=== PATIENT | female | born 1980 | race Caucasian/White ===

== ENCOUNTER 2018-03-25 15:39 | Emergency (ER) | payer OTHER ==
[~2018-03-25] VITALS: Ht 157.5 cm; Wt 109.0 kg
[~2018-03-25 15:39] MED LIST: NO HOME MEDS
[2018-03-25 15:52] VITALS: BP 149/96
== END 2018-03-25 16:15 | disposition home or self-care (01) ==
LOC: ER 15:40
DX: M25.521 Pain in right elbow (principal); M25.532 Pain in left wrist; Z90.49 Acquired absence of other specified parts of digestive tract; X50.0XXA Overexertion from strenuous movement or load, initial encounter; Y93.H3 Activity, building and construction; Y92.89 Other specified places as the place of occurrence of the external cause; Y99.8 Other external cause status
CPT/HCPCS: 99281

== ENCOUNTER 2024-09-11 16:12 | Emergency (ER) | payer MEDICAID ==
[~2024-09-11] VITALS: Ht 172.7 cm; Wt 119.6 kg
[2024-09-11 16:21] VITALS: TEMP 98.1
--- NOTE | 2024-09-11 16:37 | ELECTROCARDIOGRAPH REPORT ---
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 Jalen Kendall Measurements Intervals [place] Rate: 93 P: 37 MT: 128 QRS: 34 QRSD: 88 T: 36 QT: 380 QTc: 473 Interpretive Statements Sinus rhythm Electronically Signed On 09-11-2024 18:29:[address] Jalen Kendall Please click the below link to view image of tracing.
--- NOTE | 2024-09-11 16:39 | RADIOLOGY REPORT ---
CHEST RADIOGRAPH Indication: CP Technique: Single frontal view of the chest was obtained COMPARISON: None FINDINGS: Lines and Tubes: None Lungs: Clear Pleura: No effusion. No pneumothorax. Cardiomediastinal contours: Unremarkable Bones: Unremarkable IMPRESSION: No acute disease.
[2024-09-11 16:48] LABS: BASOPHILS # (AUTO) 0.1 X10'3 (0-0.2); BASOPHILS % (AUTO) 0.5 % (0-1); EOSINOPHILS # (AUTO) 0.5 X10'3 (0-0.9); EOSINOPHILS % (AUTO) 4.2 % (0-6); HEMATOCRIT 27.6 % (35.0-45.0); HEMOGLOBIN 8.3 g/dl (12.0-16.0); LYMPHOCYTES # (AUTO) 2.4 X10'3 (1.1-4.8); LYMPHOCYTES % (AUTO) 19.1 % (21-51); MEAN CORPUSCULAR HEMOGLOBIN 19.1 PG (27.0-31.0); MEAN CORPUSCULAR HGB CONC 30.2 g/dL (33.0-36.5); MEAN CORPUSCULAR VOLUME 63.1 FL (78-98); MEAN PLATELET VOLUME 6.8 FL (7.4-10.4); MONOCYTES # (AUTO) 0.8 X10'3 (0-0.9); MONOCYTES % (AUTO) 6.4 % (2-12); NEUTROPHILS # (AUTO) 8.7 X10'3 (1.8-7.7); NEUTROPHILS % (AUTO) 69.8 % (42-75); PLATELET COUNT 573 X10'3 (140-440); RED BLOOD COUNT 4.38 X10'6 (4.20-5.60); RED CELL DISTRIBUTION WIDTH 18.7 % (11.5-14.5); WHITE BLOOD COUNT 12.4 X10'3 (4.5-11.0)
[2024-09-11 17:08] LABS: ALANINE AMINOTRANSFERASE 17 U/L (12-78); ALBUMIN/GLOBULIN RATIO 0.7 (1.1-1.5); ALKALINE PHOSPHATASE 89 IU/L (46-116); ANION GAP 8 (8-16); ASPARTATE AMINO TRANSFERASE 11 U/L (10-37); BILIRUBIN,TOTAL 0.1 MG/DL (0.1-1.0); BLOOD UREA NITROGEN 17 MG/DL (7-18); BUN/CREATININE RATIO 28.3 (10.0-20.0); CALCIUM 8.5 MG/DL (8.5-10.1); CHLORIDE 105 MMOL/L (99-107); GLUCOSE 88 MG/DL (70-104); POTASSIUM 3.7 MMOL/L (3.5-5.1); SODIUM 139 MMOL/L (135-145); TOTAL CARBON DIOXIDE 26.5 MMOL/L (24-32); TOTAL PROTEIN 7.4 G/DL (6.4-8.2); eCRCL 118 ML/MIN; eGFR > 90 ML/MIN
[2024-09-11 17:14] LABS: PRO BRAIN NATRIURETIC PEPTIDE 47 PG/ML (0-125)
[2024-09-11 17:59] VITALS: BP 127/58; PULSE 79; O2SAT 100
--- NOTE | 2024-09-11 18:21 | Physician Documentation ---
History of Present Illness ~ Chief Complaint: Edema Stated Complaint: SWELLING ALL OVER BODY Time Seen by MD: 18:06 Primary Medical Doctor: DRAGAN Mode of Arrival: [facility] 44-year-old female patient came to the emergency room because of bilateral lower extremity swelling and occasional shortness a breath for two days. No chest pain. No surgery. 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 Medication Reconciliation Allergies: Coded Allergies: No Known Allergies (Unverified , 10/18/15) Miscellaneous Medications Home Med List (No Home Medications), (Reported) Past Medical History Past Medical History: Cholelithiasis Past Surgical History: cholecystectomy, orthopedic surgeries, tubal ligation Last Menstrual Period: Aug 31, 2024 Drug Use: none Lives In: Home Occupation: employed Review of Systems ROS As stated above in the HPI, otherwise all systems are reviewed and negative. Physical Exam Vital Signs: Temperature: 98.1, Source: Oral, Heart Rate: 79, Respiratory Rate: 19, BP: 127/58, Pulse Oximetry: 100, Weight: 119.600 Oxygen Flow Rate: 0 General Appearance Reviewed vital signs and they are well within normal range. Const: [ ] Head: Atraumatic Eyes: Normal Conjunctiva ENT: Normal External Ears, Nose and Mouth. [Moist mucous membranes] Neck: Full range of motion. No meningismus Resp: Clear to auscultation bilaterally. Normal work of breathing Cardio: Regular rate and rhythm, no murmurs. Skin well perfused, heart rate 84 beats per minute Abd: Soft, non-tender, non-distended. Normal bowel sounds. No rebound or guarding Skin: No petechiae or rashes. Warm and dry Back: No midline or flank tenderness Ext: No cyanosis, or edema Neuro: Awake and alert Psych: Normal Mood and Affect Progress Results/Orders Results/Orders Vital Signs 09/11/24 09/11/24 09/11/24 09/11/24 16:21 16:56 17:30 17:59 Temp 98.1 Pulse 95 90 79 Resp 16 21 16 B/P (MAP) 149/91 127/69 (88) 127/58 (81) Pulse Ox 99 97 100 100 O2 Delivery Room Air* O2 Flow Rate 0 0 0 0 FiO2 21 09/11/24 09/11/24 18:05 19:18 Resp 19 16 B/P (MAP) Laboratory Tests Test 09/11/24 16:28 5/4/25 18:23 09/11/24 18:24 09/11/24 19:25 White Blood Count 12.4 H Red Blood Count 4.38 Hemoglobin 8.3 L Hematocrit 27.6 L Mean Corpuscular Volume 63.1 L Mean Corpuscular Hemoglobin 19.1 L Mean Corpuscular Hemoglobin Concent 30.2 L Red Cell Distribution Width 18.7 H Platelet Count 573 H Mean Platelet Volume 6.8 L Neutrophils (%) (Auto) 69.8 Lymphocytes (%) (Auto) 19.1 L Monocytes (%) (Auto) 6.4 Eosinophils (%) (Auto) 4.2 Basophils (%) (Auto) 0.5 Neutrophils # (Auto) 8.7 H Lymphocytes # (Auto) 2.4 Monocytes # (Auto) 0.8 Eosinophils # (Auto) 0.5 Basophils # (Auto) 0.1 CBC Comment D-Dimer 0.53 H D-Dimer Comment Sodium Level 139 Potassium Level 3.7 Chloride Level 105 Carbon Dioxide Level 26.5 Anion Gap 8 Blood Urea Nitrogen 17 Creatinine 0.60 Estimated GFR/1.73 m2 > 90 BUN/Creatinine Ratio 28.3 H Glucose Level 88 Calcium Level 8.5 Ferritin 6 L Total Bilirubin 0.1 Aspartate Amino Transf (AST/SGOT) 11 Alanine Aminotransferase (ALT/SGPT) 17 Alkaline Phosphatase 89 Troponin I High Sensitivity 5 7 6 Pro-B-Type Natriuretic Peptide 47 Total Protein 7.4 Albumin 3.0 L Globulin 4.4 H Albumin/Globulin Ratio 0.7 L Chemistry Comments Troponin I High Sens Percent Delta 40 14 Troponin I Hi Sens Absolute Change 2 -1 Iron Level 16 L Total Iron Binding Capacity 468 H Percent Iron Saturation 3 L EKG/XRAY/CT/US/VASC/MRI EKG : Additional Comment [facility] Test Date: 2024-09-11 Test Time: 16:35:27 Pat Name: KARLEY KEENAN Department: [facility] Patient ID: [id number] Room: Gender: F [employer]: : 1980 Requested By: SYDNEY BROWN Order Number: [id number] Reading MD: Dr. Sd Kendall Measurements Intervals [place] Rate: 93 P: 37 MO: 128 QRS: 34 QRSD: 88 T: 36 QT: 380 QTc: 473 Interpretive Statements Sinus rhythm Electronically Signed On 09-11-2024 18:29:[address] Sd Kendall Please click the below link to view image of tracing. 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 Medical Decision Making Findings During the physical examination, the findings suggestive of acute life- threatening condition such as JVD, tracheal deviation, acidotic breathing, noisy stridorous breath sounds, pulses paradoxus, muffled heart sounds, unequal breath sounds, abdominal rigidity and rebound tenderness, focal neurological deficits, cool clammy skin, severe hypotension, severe tachycardia or bradycardia are absent. Patient is awake alert oriented x3 and she has no tachycardia. The patient has BMI of 40.1. Her CBC shows WBC 12.4 and H and H8.3 and 27.6 platelets 573 in the his her anemia is microcytic hypo chromic anemia (the patient told me that she has anemia for years and she is not taking any iron.) CMP: no evidence of clinically significant acidosis, alkalosis, renal dysfunction, diabetic ketoacidosis, acute liver disease or electrolyte imbalance Troponin is five BNP is 47 albumin 3.0. Chest x-ray shows clear lungs. Her shortness of breath is probably from her chronic anemia as well. I have ordered D-dimer and Doppler ultrasound of the lower extremity and signed this patient's care to oncoming physician. Departure Time of Disposition: 23:00 Disposition: 07 LEFT AGAINST MEDICAL ADVICE Impression: Primary Impression: Dependent edema Condition: Stable Referrals: NO PRIMARY CARE PROVIDER (PCP) Signature Scribe Signature: Scribed for Sd Kendall MD by Mario Cruz . 09/11/24 20:02 (progress) SYDNEY BROWN MD September 11, 2024 18:21 MARIO GRIMES September 11, 2024 20:02
[2024-09-11 18:36] LABS: D-DIMER 0.53 MG/L FEU (0-0.50)
[2024-09-11 18:53] LABS: FERRITIN 6 NG/ML (8-252)
[2024-09-11 19:12] LABS: % IRON SATURATION 3 % (11-46); IRON 16 UG/DL (49-151); TOTAL IRON BINDING CAPACITY 468 UG/DL (259-388)
[2024-09-11 19:18] VITALS: RESP 16
--- NOTE | 2024-09-14 07:50 | VASCULAR REPORT ---
EXAM: US Duplex Right Lower Extremity Veins CLINICAL INDICATION: Reason TECHNIQUE: Real-time duplex ultrasound scan of the right lower extremity veins integrating B-mode tw o-dimensional vascular structure, Doppler spectral analysis, color flow Doppler imaging and compressi on. COMPARISON: None FINDINGS: DEEP VEINS: Unremarkable. No DVT in the visualized common femoral, femoral, proximal deep femoral or popliteal veins. The veins demonstrate normal color flow, are normally compressible, with normal phasic flow and/or augmentation response. SUPERFICIAL VEINS: Unremarkable. No thrombus in the visualized great saphenous vein. SOFT TISSUES: No acute findings. No popliteal cyst. OTHER FINDINGS: . IMPRESSION: No DVT.
== END 2024-09-11 23:08 | disposition left against medical advice (07) ==
LOC: ER 16:14
DX: R60.0 Localized edema (principal); Z90.49 Acquired absence of other specified parts of digestive tract; Z98.51 Tubal ligation status
CPT/HCPCS: 36415; 71045; 80053; 82728; 83540; 83550; 83880; 84484; 85025; 85379; 93005; 93970; 99285; J7050